=== PATIENT | female | born 1990 | race American Indian/Alaskan Native ===

== ENCOUNTER 2017-02-05 10:04 | Emergency (ER) | payer MEDICAID ==
[2017-02-05 10:11] VITALS: BP 103/62
--- NOTE | 2017-02-05 10:12 | Emergency Department Report ---
Chief Complaint: Urogenital-Female Stated Complaint: YEAST INFECTION/27 WEEKS PREG Time Seen by Provider: 02/05/17 10:09 - HPI History of Present Illness: PT states she is 27 weeks . PT states last night she noticed vaginal discomfort when trying to engage in sexual activity. PT denies discharge and vaginal bleeding. PT states she is feeling movement. - ROS Review of Systems: + dysuria - vaginal bleeding + movement - Exam Physical Exam: Pt looks well, non toxic. PT is gravid MSE screening note: Focused history and physical exam performed. Due to findings the following was ordered: labs ED Disposition for MSE Condition: Stable
[2017-02-05 11:51] LABS: Bilirubin,Urine NEG (Negative); Blood,Urine NEG (Negative); Ketones,Urine NEG (Negative); Leukocyte Esterase,Urine LG (Negative); Mucus,Urine FEW /HPF; Nitrite,Urine NEG (Negative); Protein,Urine <15 mg/dL mg/dL (Negative); Urobilinogen,Urine < 2.0 mg/dL (<2.0)
== END 2017-02-05 13:46 | disposition left against medical advice (07) ==
LOC: ED 10:04
DX: O26.893 Other specified pregnancy related conditions, third trimester (principal); N89.8 Other specified noninflammatory disorders of vagina; Z53.21 Procedure and treatment not carried out due to patient leaving prior to being seen by health care provider; Z3A.27 27 weeks gestation of pregnancy
CPT/HCPCS: 81001

== ENCOUNTER 2017-11-20 10:48 | Emergency (ER) | payer MEDICAID | END 2017-11-20 10:49 | disposition left against medical advice (07) | LOC: ED 10:48 | DX: B34.9 Viral infection, unspecified (principal); Z53.21 Procedure and treatment not carried out due to patient leaving prior to being seen by health care provider ==

== ENCOUNTER 2018-02-22 23:16 | Emergency (ER) | payer MEDICAID ==
[2018-02-22] MEDS ORDERED: NACL 0.9% 1000 ML 1,000 ML IV ONE (23:57)
[2018-02-23 00:34] LABS: Basophils % (Auto) 0.4 % (0.0-1.8); Eosinophils # (Auto) 0.1 K/mm3 (0.0-0.4); Lymphocytes % (Auto) 31.5 % (13.4-35.0); Mean Corpuscular HGB Conc 30 % (30-34); Monocytes # (Auto) 1.5 K/mm3 (0.0-0.8); Monocytes % (Auto) 12.1 % (0.0-7.3); Platelet Count 485 K/mm3 (140-440); Red Blood Count 5.36 M/mm3 (3.65-5.03)
[2018-02-23 00:44] LABS: Hematocrit 32.9 % (30.3-42.9); Hemoglobin 9.7 gm/dl (10.1-14.3); Mean Corpuscular Hemoglobin 18 pg (28-32); Mean Corpuscular Volume 61 fl (79-97)
[2018-02-23 00:48] VITALS: BP 111/67
[2018-02-23 01:12] LABS: Alanine Aminotransferase 30 units/L (7-56); Albumin 3.4 g/dL (3.9-5); BUN/Creatinine Ratio 30; Blood Urea Nitrogen 12 mg/dL (7-17); Calcium 9.3 mg/dL (8.4-10.2); Hemolysis Index 0
--- NOTE | 2018-02-23 03:16 | Emergency Department Report ---
Blank Doc - Documentation Documentation: I was unable to evaluate this patient. SHe left against medical advice after speaking to nurse. She notified the staff that she would be leaving the department.
[2018-02-23 03:33] LABS: Bilirubin,Urine NEG (Negative); Blood,Urine NEG (Negative); Color,Urine Yellow (Yellow); Mucus,Urine FEW /HPF; RBC,Urine < 1.0 /HPF (0.0-6.0)
== END 2018-02-23 03:16 | disposition left against medical advice (07) ==
LOC: ED 23:16
DX: R19.7 Diarrhea, unspecified (principal); R10.9 Unspecified abdominal pain; Z53.21 Procedure and treatment not carried out due to patient leaving prior to being seen by health care provider
CPT/HCPCS: 36415; 80053; 81001; 85025

== ENCOUNTER 2020-09-08 19:14 | Emergency (ER) | payer OTHER ==
[2020-09-08] MEDS ORDERED: IBUPROFEN 600 MG TAB PO ONE (20:45)
[2020-09-08] MEDS ORDERED: ACETAMINOPHEN 325 MG TAB PO ONE (20:45)
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
[2020-09-08 21:57] VITALS: BP 141/77
== END 2020-09-08 21:45 | disposition home or self-care (01) ==
LOC: ED 19:14
DX: S86.911A Strain of unspecified muscle(s) and tendon(s) at lower leg level, right leg, initial encounter (principal); S83.91XA Sprain of unspecified site of right knee, initial encounter; S80.01XA Contusion of right knee, initial encounter; F17.200 Nicotine dependence, unspecified, uncomplicated; Z79.899 Other long term (current) drug therapy; V49.49XA Driver injured in collision with other motor vehicles in traffic accident, initial encounter; Y93.89 Activity, other specified; Y92.488 Other paved roadways as the place of occurrence of the external cause; Y99.8 Other external cause status